=== PATIENT | female | born 1970 | race Caucasian/White ===

== ENCOUNTER 2017-12-22 13:56 | Emergency (ER) | payer MEDICARE ==
[~2017-12-22] VITALS: Ht 167.6 cm; Wt 117.9 kg
[2017-12-22 14:02] VITALS: BP_SYST 162
== END 2017-12-22 14:31 | disposition home or self-care (01) ==
LOC: SED 13:56
DX: G51.0 Bell's palsy (principal); R03.0 Elevated blood-pressure reading, without diagnosis of hypertension; Z90.49 Acquired absence of other specified parts of digestive tract; Z90.710 Acquired absence of both cervix and uterus; Z88.5 Allergy status to narcotic agent
CPT/HCPCS: 99283

== ENCOUNTER 2023-05-06 01:18 | Emergency (ER) | payer SELFPAY ==
[~2023-05-06] VITALS: Ht 167.6 cm; Wt 96.6 kg
[2023-05-06 01:41] VITALS: BP_SYST 139; PULSE 78; RESP 18; TEMP 97.6; O2SAT 98
[2023-05-06] MEDS ORDERED: AUG875 PO (04:43)
[2023-05-06] MEDS ORDERED: BENZ30CR TP (04:43)
[2023-05-06] MEDS ORDERED: FLUC200T PO (04:43)
[2023-05-06] MEDS ORDERED: SULF1TAB48 PO (04:43)
[2023-05-06 05:17] LABS: BILIRUBIN,URINE NEGATIVE (NEGATIVE); BLOOD, URINE NEGATIVE (NEGATIVE); CLARITY/URINE Clear (CLEAR); COLOR,URINE YELLOW (YELLOW); GLUCOSE,URINE 2+ (NEGATIVE); KETONES,URINE NEGATIVE (NEGATIVE); NITRITE, URINE POSITIVE (NEGATIVE); PROTEIN URINE NEGATIVE (NEGATIVE); UROBILINOGEN,URINE 0.2 (0.2-1.0)
[2023-05-06 05:22] VITALS: BP_SYST 138; PULSE 68; RESP 20; TEMP 97.7; O2SAT 96
[2023-05-06 05:26] LABS: LEUKOCYTE ESTERASE ,URINE NEGATIVE (NEGATIVE)
[2023-05-06 05:32] LABS: BACTERIA,URINE MODERATE /HPF (None Seen)
== END 2023-05-06 05:01 | disposition home or self-care (01) ==
LOC: SED 01:18
DX: R10.2 Pelvic and perineal pain (principal); Z88.5 Allergy status to narcotic agent; Z79.899 Other long term (current) drug therapy
CPT/HCPCS: 81000; 81003; 87086; 99283